=== PATIENT | female | born 1970 | race Two or more races ===

== ENCOUNTER 2024-07-28 08:02 | Emergency (ER) | payer OTHER ==
[~2024-07-28] VITALS: Ht 157.5 cm; Wt 54.4 kg
[2024-07-28] MEDS ORDERED: BENZ-13 PO (09:17)
[2024-07-28] MEDS ORDERED: ALBU18HF2 INH (09:17)
[2024-07-28 09:40] VITALS: BP 126/76; TEMP 98.5; O2SAT 99
== END 2024-07-28 09:42 | disposition home or self-care (01) ==
LOC: ER 08:17
DX: R05.9 Cough, unspecified (principal)
CPT/HCPCS: 71045-TC